=== PATIENT | female | born 1985 | race Caucasian/White ===

== ENCOUNTER → 2016-11-13 | Day surgery (SDC) | payer OTHER | END | disposition home or self-care (01) | LOC: SDC 07:16 | DX: N30.10 Interstitial cystitis (chronic) without hematuria (principal); N30.00 Acute cystitis without hematuria; G89.29 Other chronic pain; K21.9 Gastro-esophageal reflux disease without esophagitis; I10 Essential (primary) hypertension; E66.9 Obesity, unspecified; J45.909 Unspecified asthma, uncomplicated; M19.90 Unspecified osteoarthritis, unspecified site; G43.909 Migraine, unspecified, not intractable, without status migrainosus; F17.210 Nicotine dependence, cigarettes, uncomplicated; Z88.6 Allergy status to analgesic agent; Z90.710 Acquired absence of both cervix and uterus; Z98.51 Tubal ligation status | CPT/HCPCS: C1758; J2704; Q9967 ==

== ENCOUNTER 2016-12-13 17:16 | Emergency (ER) | payer OTHER | END 2016-12-13 18:14 | disposition home or self-care (01) | LOC: ER 17:16 | DX: S93.401A Sprain of unspecified ligament of right ankle, initial encounter (principal); E66.9 Obesity, unspecified; F17.210 Nicotine dependence, cigarettes, uncomplicated; Z90.710 Acquired absence of both cervix and uterus; Z79.899 Other long term (current) drug therapy; Z88.5 Allergy status to narcotic agent; X50.1XXA Overexertion from prolonged static or awkward postures, initial encounter ==

== ENCOUNTER 2017-02-07 15:49 | Emergency (ER) | payer OTHER | END 2017-02-07 18:37 | disposition home or self-care (01) | LOC: ER 15:49 | DX: N23 Unspecified renal colic (principal); F17.210 Nicotine dependence, cigarettes, uncomplicated; Z79.899 Other long term (current) drug therapy; Z88.6 Allergy status to analgesic agent | CPT/HCPCS: 36415; 96374; 96375; 96376 ==